=== PATIENT | female | born 1955 | race Caucasian/White ===

== ENCOUNTER 2021-10-13 18:04 | Inpatient (IN) | payer OTHER ==
[~2021-10-13] VITALS: Ht 162.6 cm; Wt 53.5 kg
--- NOTE | 2021-10-14 01:49 | NUR ---
ADMISSION SUMMARY Pt was admitted to [facility] from [facility] on 10/13/21 at 1937. Vital signs were obtained and skin assessment performed. Skin assessment was unremarkable. Pt signed herself in voluntarily. Pt was opposed to hospitalization. Pt stated she is fine and she needs to return home. Pt denied that her overdose was intentional and stated it was an accident. Pt stated she will stay in the hospital for 24 hours and then she will demand to be released. Pt requested something to help her sleep and something for her back pain. RN called and spoke with SUSAN Serna. Received one time order for 50mg trazodone and 5% lidoderm patch. Pt agreed to both. Pt denied SI, HI and AVH. Pt endorsed depression but attributed the depression to being hospitalized.
[2021-10-14 06:38] LABS: CHOLESTEROL 171 mg/dL (<200); HDL CHOLESTEROL 81 mg/dL (>40); LDL CHOLESTEROL 82 mg/dL (<100); TC:HDL 2.1 Ratio (Not establshd); TRIGLYCERIDE 44 mg/dL (<150); VLDL 9 mg/dL (<40)
[2021-10-14 06:46] LABS: SERUM ASSESSMENT Clear
[2021-10-14 07:47] VITALS: BP 158/101
[2021-10-14 08:47] LABS: ANION GAP 10 mmol/L (7-16); BUN 14 mg/dL (7-18); CHLORIDE 93 mmol/L (98-107); CO2 26 mmol/L (21-32); CREATININE 0.6 mg/dL (0.6-1.0); GLUCOSE 89 mg/dL (74-106); POTASSIUM 3.9 mmol/L (3.5-5.1); SODIUM 129 mmol/L (136-145)
[2021-10-14 11:17] VITALS: BP 158/101
--- NOTE | 2021-10-14 11:37 | NUR ---
Nutrition: pt admitted to [facility] with suicide attempt/Overdose of pills, bipolar. New admit. No H&P yet. Recent COVID. Current hyponatremia. Consumed 10% of breakfast this am. Pt would not speak with RD during visit. No weight hx. Current BMI WNL. Will offer Ensure once daily til po trends determined. Pt stating overdose was accidental and she is only staying [address] as low risk.
--- NOTE | 2021-10-14 15:30 | NUR ---
Lesvia Kelly from [facility] reported that patient was positive for Covid on 09/26/21.
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
--- NOTE | 2021-10-14 17:58 | NUR ---
Payton, "Brianna", was alert and oriented x4 this shift. She presented as calm, cooperative, guarded, and withdrawn. She has a blunted affect and responds minimally to questions asked. She denied SI/HI/CATHERINE and remained safe on the unit. She was medication and meal compliant, with a poor to fair appetite. She was isolative to her room, occassionally presenting to the dayroom to watch TV, and required encouragement to attend groups. She c/o upper back pain and requested two lidocaine patches, instead of one; orders received to start tomorrow. Pt c/o a CATHERINE with ringing in her rings this afternoon and stated, "when this happens my blood pressure is usually high". Pt's BP manually was 158/98. PHARMACY INFORMATICS MANAGER Michael was paged and orders received for a one time dose of losartan 25 mg and scheduled AM losartan increased to 50mg to start tomorrow. Pt was also given tylenol at that time with effectiveness. Pt requested to shower and was setup in the showerroom and showered without assistance. She voiced c/o back pain after dinner, Dr. Thompson paged and orders received for ibuprofen 600mg q6PRN. Pt was educated on the new order and rated her pain a "12" out of 10 (10 being the worst). She rolled her eyes and expressed ibuprofen was not going to help her pain. Pt was provided education on other measures that could relieve her pain, and education provided regarding narcotics. Pt did not voice any other physical complaints this shift. She does have a productive cough she stated has worsened since she had COVID but denied SOB. She reports her last BM was today. Will continue to monitor.
[2021-10-14 19:25] VITALS: BP 152/93
--- NOTE | 2021-10-14 23:29 | NUR ---
At onset of shift pt was sitting in day room. This shift pt was alert and oriented 3-4. Pt had a phone call in the evening, which she took in the day room. Pt was complaint with medication and vital signs. Pt ate ice cream for an evening snack. Pt's affect was flat. Pt stated that since she has had back pain today "I figured it would be best to stay by myself." Pt denied thoughts about hurting herslef and denied AVH. Pt requested "muscle rub" for her back and RN obtained an order for Bengay. Pt also requested more trazodone. Recieved a one time dose from SUSAN Scott. Pt was calm, pleasant and cooperative. Made her needs known and was appropraite towards staff. Pt was observed sitting in her room in the dark for a period of time. Pt is a low fall risk. Will continue to monitor.
[2021-10-15 08:11] LABS: GLYCOHEMOGLOBIN (HGB A1C) 5.6 % (4.8-5.6)
[2021-10-15 09:31] VITALS: BP 159/85
[2021-10-15 09:35] VITALS: BP 159/85
--- NOTE | 2021-10-15 10:00 | NUR ---
RESUMMED CARE FROM OVERNIGHT SHIFT THIS AM, PATIENT IN ROOM SITTING ON BED QUIET. PATIENT ALERT ORIENTD TIMES 4 I ASKED PATIENT ABOUT SI/HI/AH/VH SHE DENIES. I ASKED PATIENT WHY SHE TOOK 6 GABAPENTIN SHE STATES SHE DID NOT TRY TO KILL HERSELF. SHE STATES THAT SHE HAD COVID 2 WEEKS AGO AND SHE WAS DELIRIOUS AND DID NOT KNOW SHE TOOK TO MANY PILLS. PATIENT DENIES ANXIETY OR DEPESSION. PATIENTS ABDMEN SOFT BOWEL SOUNDS PRESENT PATIENTS LUNGS CLEAR. PATIENT CALM COOPERATIVE SHE CAME TO GROUP BUT IS VERY QUIET NOT INTERACTING WITH ANYONE. WILL CONTINUE TO MONITOR PATIENT FOR SAFETY AND BEHAVIORS.
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
[2021-10-15 20:22] VITALS: BP 145/75
--- NOTE | 2021-10-15 22:02 | NUR ---
At onset of shift pt was walking in hallway calmly. This shift pt was alert and oriented x4. Pt was up ad keren independently. Pt was overall calm, pleasant and cooperative. Pt was social with staff and minimally social with peers. Pt did sit in day room in the evening and watch TV. Pt requested a breathing treatment and guaifenesin for her congestion. Pt denied SI, HI and AVH. Pt stated she thinks she was "out of it" when she took too many pills. Pt was compliant with medication and vital signs. Pt is low fall risk. Will continue to monitor.
[2021-10-16 09:35] VITALS: BP 160/93
[2021-10-16 10:11] VITALS: BP 160/93
--- NOTE | 2021-10-16 10:48 | NUR ---
RESUMMED CARE FROM OVERNIGHT SHIFT THIS AM, PATIENT IN DAY ROOM SITTING QUIET. PATIENT ATE BREAKFAST TOOK MEDICATION WITHOUT INCIDENCE; PATIENT ALERT ORIENTED TIMES 4. PATIENT DENIES SI/HI/AH/VH AT PRESENT NO DEPRESSION OR ANXIETY. PATIENT DID TELL [employer] OFFICER CRISTIAN SALAZAR SHE DID NOT SLEEP WELL. [employer] REVENUE OFFICER IS GOING TO INCREASE MELATONIN AT HS. PATIENTS ABDOMEN SOFT BOWEL SOUNDS PRESENT PATIENTS LUNG CLEAR. PATIENT HAS A COUGH OCCASSIONALLY SHE PREVIOUSLY HAD COVID; AND SHE IS A SMOKER 1 PACK A DAY. PATIENT PARTICIPATES IN GROUPS SHE HAS NOT DISPLAYED ANY BEHAVIORS. WILL CONTINUE TO MONITOR PATIENT FOR SAFETY AND BEHAVIORS.
--- NOTE | 2021-10-16 18:31 | NUR ---
RT PROGRESS NOTE- PT IS DOING BETTER ABOUT ATTENDING GROUPS RATHER THAN STAYING IN HER ROOM.
[2021-10-16 19:52] VITALS: BP 157/76
--- NOTE | 2021-10-16 23:09 | NUR ---
PATIENT WAS UP IN CHAIR IN DINING ROOM THIS EVENING WHEN THIS NURSE ASSUMED CARES. PATIENT A/0X4. SHE DENIES SI/HI/AVH. SHE C/0 CHRONIC BACK AND SHOULDER PAIN. IBUPROFEN 600MG PO GIVEN WITH HS MEDS. PATIENT LUNGS WITH EXPIRATORY WHEEZES. CALLED RT TO MAKE SURE THEY CAME TO GIVE HER HER TREATMENT. BREATHING NOT LABORED AT THIS TIME. LIDODERM PATCH ON BACK NOT REMOVED BEFORE PATIENT WENT TO BED AND UNABLE TO FIND ON BACK. PATIENT TOOK HER MEDS WHOLE WITH WATER. SHE HAD HS SNACK. NO BEHAVIORS. PATIENT STATES SHE USED TO BE ON GABAPENTIN BID AND WOULD LIKE DR TO PUT HER BACK ON THIS FOR FOOT NEUROPATHY. BED IN LOW POSITION. ROUTINE ROUNDS TO ASSESS SAFETY AND STATUS OF PATIENT.
--- NOTE | 2021-10-17 00:58 | NUR ---
PATIENT HAS BEEN SITTING UP IN DINING ROOM FOR AN HOUR. WENT BACK TO ROOM FOR 20 MINUTES AND NOW BACK OUT IN DINING ROOM SITTING IN A RECLINER. STATES SHE IS UNABLE TO SLEEP. PATIENT IS CALM AND COOPERATIVE. CONTINUING TO MONITOR.
[2021-10-17 04:44] LABS: BASOPHILS 0.7 % (0.0-2.0); EOSINOPHILS 1.5 % (0.0-3.0); HEMATOCRIT 37.5 % (37.0-47.0); HEMOGLOBIN 12.9 gm/dL (12.0-15.0); LYMPHOCYTES 28.3 % (24.0-44.0); MCH 32.1 pg (26.0-34.0); MCHC 34.4 g/dL (28.0-37.0); MCV 93.4 fL (80.0-100.0); MONOCYTES 14.2 % (1.0-8.0); PLATELET COUNT 361 thou/uL (150-400); POLYS 55.3 % (36.0-66.0); RBC 4.01 mil/uL (4.20-5.00); RDW 13.1 % (10.5-14.5); WBC 5.5 thou/uL (4.0-11.0)
[2021-10-17 04:49] LABS: CALCIUM 8.6 mg/dL (8.5-10.1); CREATININE 0.6 mg/dL (0.6-1.0); MAGNESIUM 1.6 mg/dL (1.8-2.4); POTASSIUM 3.9 mmol/L (3.5-5.1)
--- NOTE | 2021-10-17 05:15 | NUR ---
PATIENT WAS UP AND DOWN DURING NIGHT. PATIENT UNABLE TO SLEEP AND MELATONIN HAS NOT HAD ANY AFFECT ON HER. PATIENT WOULD LIKE SOMETHING TO HELP HER SLEEP MORE AT NIGHT. PATIENT HAS HAD NO BEHAVIORS AND HAS BEEN CALM AND COOPERATIVE. PATIENT BACK TO ROOM NOW TO TRY AND SLEEP. BED IN LOW POSITION. ROUTINE ROUNDS TO ASSESS SAFETY AND STATUS OF PATIENT.
--- NOTE | 2021-10-17 09:24 | NUR ---
QUIET AND WITHDRAWN THIS AM-MINIMALLY VERBAL WITH AM ASSESSMENT-BLUNTED AFFECT. POOR EYE CONTACT.REPORTS FEELING "TIRED" D/T POOR SLEEP LAST PM-VERIFIED BY NURSING STAFF PT REPORTED TO BE UP SEVERAL TIMES DURING NIGHT
[2021-10-17 09:31] VITALS: BP 128/74
--- NOTE | 2021-10-17 11:31 | NUR ---
PLACED ON STRICT I/O BY D/T LOW NA. PT INSTRUCTED ON FLUID RESTICT AND RATIONAL-SHE STATES UNDERSTANDING AND VOICES DESIRE TO COOPERATE WITH PROCESS.CNAS INSTRUCTED ON FLUID RESTICT-CUPS REMOVED FROM ROOM-SO FAR THIS AM HAS HAD 110 CC FLUID
--- NOTE | 2021-10-17 16:16 | NUR ---
ALEKSANDRA and Dr. New met with the Pt. Pt presented with a bight affect and positive mood. Dr. New spoke with the Pt about PHP and IOP. Pt stated she was not sure about going to a PHP/IOP program. ALEKSANDRA then asked if Pt was willing to do follow up with a psychiatrist. Pt was agreeable to following up with a psychiatrist. Discharge was set for 10/18/2021 @ 0930. Pt would like her daughter to pick her up. However ALEKSANDRA has not been able to get a hold of [facility] by phone. Pt will be transported via taxi if [facility] is not able to tow picker the Pt.
[2021-10-17 20:10] VITALS: BP 156/76
[2021-10-17 20:11] VITALS: BP 156/76
--- NOTE | 2021-10-17 22:24 | NUR ---
PATIENT REQUESTED MED FOR BACK PAIN THIS EVENING WITH HS MEDS. TYLENOL 650MG PO GIVEN WELL NEW ORDER FOR TRAZADONE 50MG PO. PATIENT TOOK MEDS WHOLE WITH WATER. PATIENT DENIES SI/HI/AVH. SHE IS HOPEFUL OF GOING HOME TOMORROW. SHE IS HOPING TO SLEEP WELL THIS EVENING. PATIENT IS RESTING WITH EYES CLOSED. ROUTINE ROUNDS TO ASSESS SAFETY AND STATUS OF PATIEN.
--- NOTE | 2021-10-18 05:35 | NUR ---
PATIENT SLEPT TILL ABOUT 5 AM AND GOT UP AND GAVE THUMBS UP STATING SHE SLEPT WELL AND WAS GOING TO GO BACK AND TRY AND SLEEP SOME MORE. C/0 FEELING COLD SO WARM BLANKET GIVEN TO PATIENT AND SHE LAID DOWN FOR 40 MORE MINUTES BEFORE BEING AWAKENED TO HAVE LAB DRAWN AND SHE THEN CAME TO SIT IN DINING ROOM. PATIENT IN GOOD SPIRITS AND FEELING MORE RESTED. PATIENT REQUESTED REAL ESTATE INSTRUCTOR PILLS EARLY TODAY SO SHE COULD SLEEP SOME MORE AND NOT BE AWAKENED BUT GOT AWAKENED BY LAB ANYWAY.
[2021-10-18 06:07] LABS: CALCIUM 8.6 mg/dL (8.5-10.1); CREATININE 0.6 mg/dL (0.6-1.0); POTASSIUM 3.9 mmol/L (3.5-5.1)
[2021-10-18 07:12] VITALS: BP 156/76
[2021-10-18 09:07] VITALS: BP 137/78
--- NOTE | 2021-10-18 09:16 | NUR ---
Pt has the following appointments PCP- Dr. Enid Acosta 10/20/2020 @ 1100am Psychiatric intake- Pt will need to complete a walk in appointment with [facility] within 24hrs of discharge. Pt was verbally given this information and the information was provided on the dischrge document
[2021-10-18] MEDS ORDERED: ACYCLOVIR 400400 MG PO (09:18)
[2021-10-18] MEDS ORDERED: COLESTID1 GM PO (09:19)
[2021-10-18] MEDS ORDERED: COZAAR 50 MG TA50 M1 PO (09:20)
[2021-10-18] MEDS ORDERED: LEXAPRO 10 MG T10 M1 PO (09:21)
[2021-10-18] MEDS ORDERED: PROTONIX 20 MG20 M1 PO (09:24)
[2021-10-18] MEDS ORDERED: SODIUM CHLORI1000 MG PO (09:25)
[2021-10-18 09:33] VITALS: BP 156/76
--- NOTE | 2021-10-18 09:54 | NUR ---
DISCHARGE INSTRUCTIONS REVIEWED WITH PATIENT INCLUDING FOLLOW UP WITH PCP FOR HYPONATREMIA,FLUID RESTRICTION AND SUICIDE PREVENTION HANDOUT. PT DENIES ANY SI/SH. STATES "WASN'T HAVING ANY WHEN I CAME IN" IDENTIFIES CALLING DAUGHTER OR "CAREGIVER" HEALTHY COPING ALTERNATIVE AND ABLE TO LIST 2 POSSIBLE TRIGGERS TO NEGATIVE THINKING. PERSONAL BELONGINGS SECURED AND PT DENIES ANY MISSING PERSONAL ITEMS. NA RESULTS REVIEWED WITH DR. PARIKH AND DR CLEMENTS PRIOR TO DC
[2021-10-18] MEDS ORDERED: NICODERM CQ1 EAC1 TRANSDERM (10:10)
--- NOTE | 2021-10-20 14:00 | D ---
[facility] [place] [address] DISCHARGE SUMMARY Name: ERIN GROSSMAN Room #: 518B-B [facility] IN M.R.#: [id number] Admission: 10/13/21 Attend Phys: Yimi Thompson DO Discharge: 10/18/21 Date of : 59 Report #: [id number] THIS REPORT FOR: cc: ENID VALLEJO CRYSTAL D. DO Kerstein, Andrew H. DO ~ DATE OF SERVICE: 10/18/2021 INPATIENT PSYCHIATRIC DISCHARGE SUMMARY ATTENDING PSYCHIATRIST: Yimi Thompson DO BLOOD TYPER: Nathaniel German MD DISCHARGE DIAGNOSES: 1. Major depressive disorder, recurrent, severe degree. 2. Posttraumatic stress disorder. 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 The patient is discharged to her home. The patient did allow for psychiatric care as follows: Dr. Enid Vallejo at 11:00 a.m. (PCP) and psychiatric intake with [facility] within 24 hours of discharge. She is on a 1200 mL fluid restrictions, one tablet of sodium chloride 3 times a day. Otherwise, her diet is regular. DISCHARGE MEDICATIONS: Acyclovir 400 mg oral daily for viral suppression, colestipol 1 gram oral daily, bile acid sequestrant for hypercholesterolemia, losartan 50 mg oral daily for hypertension, escitalopram 5 mg oral daily for depression, pantoprazole 40 mg oral daily for GERD and sodium chloride 1 gram oral 3 times a day. The patient was given crisis suicide hotline information. No alcohol, no illicit drugs. Smoking cessation recommended and Nicoderm prescribed for one week. LABORATORY DATA: This admission, hematology from 10/17, white count 5.5, H and H 12.9 and 37.5, platelet count 361. Chemistries: Sodium 123, potassium 3.9, chloride 91, bicarbonate 24, anion gap 8, BUN 16, creatinine 0.6, calcium 8.6, magnesium slightly low on admission at 1.6. Initial sodium by the way was 129 on 10/14. The patient is aware of the importance of this and rather follow up for her hyponatremia. No imaging done on this admission. REASON FOR ADMISSION: Back on 10/13, a 65-year-old female referred from [facility] after an intentional overdose, [place] [address] DISCHARGE SUMMARY Name: ERIN GROSSMAN Room #: 518B-B [facility] IN M.R.#: [id number] Admission: 10/13/21 Attend Phys: Yimi Thompson DO Discharge: 10/18/21 Date of : 59 Report #: [id number] Apparently, the patient had been admitted earlier in the month at [facility], allowed to leave AMA. Here at the hospital, she denied intent to kill herself. She denied suicidal intent or ideation while she was here. It does sound like she was really delirious when she took a multidrug overdose. HOSPITAL COURSE: The patient was compliant with medications. Her affect brightened. On the day of discharge, she was not suicidal or homicidal. DISCHARGE PHYSICAL EXAMINATION: VITAL SIGNS: Temperature 35.8 on day of discharge, pulse 70, respirations 18, BP 156/76. MUSCULOSKELETAL: Normal gait and station. BMI 20.3, weight 53.524 kg. I am going to see if we did an EKG while she was here, we did not. MENTAL STATUS EXAMINATION: Well-developed, age-appearing female. Attention intact. Concentration was intact. Speech normal rate and tone. Thought process: Linear and goal directed. Thought content: Focused on discharge. Mood and affect, good, congruent, euthymic, broad range. Denied SI, HI. Denied hopelessness, helplessness. Memory not formally tested. Denied auditory, visual or tactile hallucinations. Insight and judgment fair to in some cases limited. Fund of knowledge at least average range. Prognosis for this patient is fair to guarded and will depend on compliance with outpatient psychiatric and medical treatment. <ELECTRONICALLY SIGNED> By: Yimi Thompson DO 10/20/21 [id number] Yimi Thompson DO /nt
== END 2021-10-18 10:20 | disposition home or self-care (01) | DRG 885 ==
LOC: SBH
PROVIDERS: Hospitalist; Nurse Practitioner; Nurse Practitioner Psychiatric/Mental Health; ADMIT Psychiatry & Neurology Psychiatry; ATTEND Psychiatry & Neurology Psychiatry
DX: F33.3 Major depressive disorder, recurrent, severe with psychotic symptoms (principal); U07.1 COVID-19; E87.1 Hypo-osmolality and hyponatremia; F43.10 Post-traumatic stress disorder, unspecified; J44.9 Chronic obstructive pulmonary disease, unspecified; E78.5 Hyperlipidemia, unspecified; K21.9 Gastro-esophageal reflux disease without esophagitis; G62.9 Polyneuropathy, unspecified; I10 Essential (primary) hypertension; F41.9 Anxiety disorder, unspecified; T43.012A Poisoning by tricyclic antidepressants, intentional self-harm, initial encounter; Z60.2 Problems related to living alone; T45.0X2A Poisoning by antiallergic and antiemetic drugs, intentional self-harm, initial encounter; Y92.89 Other specified places as the place of occurrence of the external cause; Z90.710 Acquired absence of both cervix and uterus; Z81.1 Family history of alcohol abuse and dependence; Z82.5 Family history of asthma and other chronic lower respiratory diseases; Z82.49 Family history of ischemic heart disease and other diseases of the circulatory system
CPT/HCPCS: 10880